=== PATIENT | male | born 1975 | race Two or more races ===

== ENCOUNTER 2020-12-05 20:24 | Emergency (ER) | payer OTHER ==
[~2020-12-05] VITALS: Ht 170.2 cm; Wt 66.7 kg
[2020-12-05] MEDS ORDERED: HYDROMORPHONE INJ 2 MG/ML DISP.SYRIN IM ONE (20:30)
[2020-12-05] MEDS ORDERED: HYDROMORPHONE 1 MG/1 ML DISP.SYRIN ONE ×2 (20:30→20:49)
[2020-12-05] MEDS ORDERED: BUPIVACAINE 0.5 % PF 150 MG/30 ML VIAL ONE (20:31)
[2020-12-05] MEDS ORDERED: LIDOCAINE 1% INJ 50 ML MDV IJ ONE (20:31)
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
[2020-12-05 20:41] LABS: BASOPHILS # (AUTO) 0.1 /CMM (0.0-0.2); EOSINOPHILS % (AUTO) 1.8 % (0.0-6.0); HEMATOCRIT 47 % (39-51); HEMOGLOBIN 15.6 g/dL (13.5-17.5); LYMPHOCYTES # (AUTO) 2.4 /CMM (0.8-4.8); LYMPHOCYTES % (AUTO) 23.8 % (20.0-44.0); MEAN CORPUSCULAR HGB CONC 33 g/dl (31.0-36.0); MEAN CORPUSCULAR VOLUME 89 fL (80-96); MONOCYTES # (AUTO) 0.6 /CMM (0.1-1.30); MONOCYTES % (AUTO) 6.5 % (2.0-12.0); NEUTROPHILS # (AUTO) 6.7 /CMM (1.8-8.9); NEUTROPHILS % (AUTO) 66.9 % (43.0-81.0); PLATELET COUNT (AUTO) 287 /CMM (150-450); RED BLOOD CELL COUNT(AUTO) 5.25 MIL/uL (4.5-6.0)
--- NOTE | 2020-12-05 20:41 | NUR ---
[facility] called for higher level of care. No beds available.
--- NOTE | 2020-12-05 20:50 | NUR ---
PT STILL IN PAIN. VERBAL ORDER RECEIVED TO GIVEN ANOTHER DOSE OF DILAUDID 1MG IV X 1 DOSE. NOTED AND CARRIED OUT
[2020-12-05 20:55] LABS: BILIRUBIN,DIRECT 0.1 mg/dL (0.0-0.2); BILIRUBIN,TOTAL 0.4 mg/dL (0.2-1.0); CREATININE 1.1 mg/dL (0.6-1.3); POTASSIUM 3.6 mmol/L (3.5-5.1)
[2020-12-05 20:56] LABS: ALBUMIN 4.2 g/dL (3.4-5.0); TOTAL PROTEIN, SERUM 7.6 g/dL (6.4-8.2)
[2020-12-05] MEDS ORDERED: TDAP [DIPH/PERTUSSIS/TET] 0.5 ML VIAL IM ONE ×2 (20:56→21:00)
[2020-12-05] MEDS ORDERED: CEFAZOLIN 1 GM in IV D5W 50 ML IV ONE (21:00)
--- NOTE | 2020-12-05 21:03 | NUR ---
Shaggy Barrera [facility] transfer center called for higher level of care. Facesheet and clinicals faxed to [phone].
[2020-12-05] MEDS ORDERED: KETOROLAC TROMETHAMINE 15 MG/ML VIAL ONE (21:19)
[2020-12-05] MEDS ORDERED: KETOROLAC TROMETHAMINE INJ 30 MG/ML VIAL IV ONE (21:30)
[2020-12-05] MEDS ORDERED: HYDROMORPHONE 1 MG/1 ML DISP.SYRIN IV ONE (21:30)
--- NOTE | 2020-12-05 21:52 | NUR ---
Patient does not wish to proceed with medical care recommended by Dr. Jose Hagen MD. Patient given information related to possible complications, up to and including , which could occur as a result of leaving the hospital at this time. Patient verbalizes understanding of risks involved due to leaving against medical advice. Patient has signed AMA form.
--- NOTE | 2020-12-05 21:52 | NUR ---
Shaggy Barrera [facility] Transfer Center notified that patient left ER AMA
--- NOTE | 2020-12-05 21:53 | NUR ---
pt verbalized that he is going to [facility] directly.
[2020-12-05 21:55] VITALS: BP 151/101
[2020-12-05] MEDS ORDERED: LORAZEPAM INJ 2 MG/ML VIAL IV ONE (22:00)
== END 2020-12-05 21:55 | disposition left against medical advice (07) ==
LOC: ER 20:26
DX: S62.615B Displaced fracture of proximal phalanx of left ring finger, initial encounter for open fracture (principal); X93.XXXA Assault by handgun discharge, initial encounter; Y93.01 Activity, walking, marching and hiking; Y92.89 Other specified places as the place of occurrence of the external cause; Z20.822 Contact with and (suspected) exposure to COVID-19; F17.210 Nicotine dependence, cigarettes, uncomplicated
CPT/HCPCS: 36415; 71045; 73120; 80048; 80076; 85025; 85730; 86850; 87426; 90471; 90715; 96365; 96375; 96376; 99291; 99292; 99406; C9803; J0690; J1170 ×2; J1885; J3490 ×2; J7060